=== PATIENT | female | born 1985 | race African-American/Black ===

== ENCOUNTER 2021-03-04 21:46 | Emergency (ER) | payer OTHER ==
[2021-03-05] MEDS ORDERED: Ketorolac Tromethamine 30 MG/ML VIAL ONE (00:47)
== END 2021-03-05 01:05 | disposition home or self-care (01) ==
LOC: CSHERS 21:46
DX: K04.7 Periapical abscess without sinus (principal)
CPT/HCPCS: 96372; 99282; J1885